=== PATIENT | female | born 1955 | race Caucasian/White ===

== ENCOUNTER 2020-12-27 07:46 | Day surgery (SDC) | payer BC ==
[2020-12-22 10:50] VITALS: BMI 24.1
[2020-12-27] MEDS ORDERED: LIDOCAINE HCL/PF 2% SDV 5ML VIAL ONE (08:13)
[2020-12-27] MEDS ORDERED: PROPOFOL 20 ML ONE ×2 (08:14)
[2020-12-27 10:01] VITALS: BP 132/74; PULSE 66; TEMP 97.9
== END 2020-12-27 10:01 | disposition home or self-care (01) ==
LOC: FASU-ENDO 07:46
PROVIDERS: ATTEND Internal Medicine Gastroenterology
PROC: 0DJD8ZZ Inspection of Lower Intestinal Tract, Via Natural or Artificial Opening Endoscopic (ICD-10-PCS; principal; 2020-12-27 09:13)
DX: Z12.11 Encounter for screening for malignant neoplasm of colon (principal); Z86.010 Personal history of colon polyps